=== PATIENT | female | born 1995 | race Two or more races ===

== ENCOUNTER 2020-09-12 17:10 | Emergency (ER) | payer OTHER ==
[~2020-09-12] VITALS: Ht 160 cm; Wt 59.0 kg
[2020-09-12] MEDS ORDERED: ATABEX DHA 200200 MG PO (17:31)
== END 2020-09-12 23:09 | disposition home or self-care (01) ==
LOC: ER 17:10
DX: O26.891 Other specified pregnancy related conditions, first trimester (principal); R51.9 Headache, unspecified; Z34.01 Encounter for supervision of normal first pregnancy, first trimester

== ENCOUNTER 2020-11-08 21:00 | Emergency (ER) | payer OTHER ==
[~2020-11-08] VITALS: Ht 160 cm; Wt 62.6 kg
[~2020-11-08 21:00] MED LIST: ATABEX DHA 200200 MG PO
[2020-11-09] MEDS ORDERED: MUCINEX600 MG PO (02:50)
[2020-11-09] MEDS ORDERED: AZITHROMYCIN250 MG PO (02:50)
== END 2020-11-09 04:52 | disposition home or self-care (01) ==
LOC: ER 21:00
DX: O98.512 Other viral diseases complicating pregnancy, second trimester (principal); O99.512 Diseases of the respiratory system complicating pregnancy, second trimester; B96.0 Mycoplasma pneumoniae [M. pneumoniae] as the cause of diseases classified elsewhere; J06.9 Acute upper respiratory infection, unspecified; Z3A.17 17 weeks gestation of pregnancy; Z20.828 Contact with and (suspected) exposure to other viral communicable diseases

== ENCOUNTER 2021-04-11 12:00 | Inpatient (IN) | payer OTHER ==
[~2021-04-11 12:00] MED LIST changes: +AZITHROMYCIN250 MG PO; +MUCINEX600 MG PO
== END 2021-04-17 14:02 | disposition home or self-care (01) | DRG 807 ==
LOC: OB/GYN 04-14 12:00 → LDR 04-15 06:45 → OB/GYN 04-15 06:45
PROVIDERS: ADMIT Obstetrics & Gynecology; ATTEND Obstetrics & Gynecology
PROC: 10E0XZZ Delivery of Products of Conception, External Approach (ICD-10-PCS; principal; 2021-04-15)
PROC: 0KQM0ZZ Repair Perineum Muscle, Open Approach (ICD-10-PCS; 2021-04-15)
PROC: 10907ZC Drainage of Amniotic Fluid, Therapeutic from Products of Conception, Via Natural or Artificial Opening (ICD-10-PCS; 2021-04-15)
PROC: 3E033VJ Introduction of Other Hormone into Peripheral Vein, Percutaneous Approach (ICD-10-PCS; 2021-04-15)
PROC: 4A1HXFZ Monitoring of Products of Conception, Cardiac Rhythm, External Approach (ICD-10-PCS; 2021-04-15)
DX: O70.1 Second degree perineal laceration during delivery (principal); Z37.0 Single live birth; O48.0 Post-term pregnancy; Z3A.40 40 weeks gestation of pregnancy